=== PATIENT | female | born 1945 | race Two or more races ===

== ENCOUNTER 2023-05-14 12:49 | Emergency (ER) | payer OTHER, MEDICAID ==
[~2023-05-14] VITALS: Ht 154.9 cm; Wt 57.8 kg
[~2023-05-14 12:49] MED LIST: ATEN50TA PO; BENAPOW2 XX; DICL75TA2 PO; GABA100C PO; METF-370 PO; PRAV20TA3 GT; TRIA75TA55 PO; VENL1TAB96 PO
[2023-05-14 12:50] VITALS: TEMP 98.2
[2023-05-14 12:55] VITALS: BP 107/53; PULSE 87; RESP 18; O2SAT 96
[2023-05-14 13:20] LABS: Basophils # (auto) 0 10 ^3/uL (0-0.2); Basophils % (auto) 0.3 % (0.0-2.0); Eosinophils # (auto) 0.1 10 ^3/uL (0-0.8); Eosinophils % (auto) 1.2 % (0.0-7.0); Hematocrit 36.3 % (36.0-46.0); Hemoglobin 11.8 g/dL (12.2-16.2); Lymphocytes % (auto) 16.8 % (10.0-50.0); Mean Corpuscular Hemoglobin 29.4 pg (28.0-32.0); Mean Corpuscular Hgb Conc. 32.6 g/dL (32.0-36.0); Monocytes # (auto) 0.8 10 ^3/uL (0-1.3); Monocytes % (auto) 6.6 % (0.0-12.0); Neutrophils # (auto) 8.9 10 ^3/uL (1.6-8.6); Neutrophils % (auto) 75.1 % (37.0-80.0); Red Blood Cells 4.03 10^6/uL (4.0-5.20); Red Cell Distribution Width 12.7 % (11.8-14.3); White Blood Cell 11.9 10^3/uL (4.4-10.8)
[2023-05-14] MEDS: methylPREDNISolone SOD SUCC 125 MG/2 ML VL IM ONE (13:23)
[2023-05-14 13:32] LABS: Chloride 97 mmol/L (98-107); Potassium 3.6 mmol/L (3.5-5.1); Sodium 132 mmol/L (136-145)
[2023-05-14 13:33] LABS: Anion Gap 10 (5-15); Calcium 9.4 mg/dL (8.7-10.4); Carbon Dioxide 25 mmol/L (20-30)
[2023-05-14 13:38] LABS: Blood Urea Nitrogen 22 mg/dL (9-23); Glucose 98 mg/dL (74-106)
[2023-05-14] MEDS ORDERED: LEVO500T91 PO (14:03)
[2023-05-14] MEDS ORDERED: PRED10TA PO (14:03)
== END 2023-05-14 14:04 | disposition home or self-care (01) ==
LOC: ER 12:49
DX: J40 Bronchitis, not specified as acute or chronic (principal); E11.9 Type 2 diabetes mellitus without complications; I10 Essential (primary) hypertension; R07.89 Other chest pain
CPT/HCPCS: 36415; 71045; 80048; 85025; 96372; 99284; J2930

== ENCOUNTER 2023-10-27 11:18 | Emergency (ER) | payer OTHER, MEDICAID ==
[~2023-10-27] VITALS: Ht 154.9 cm; Wt 56.6 kg
[~2023-10-27 11:18] MED LIST changes: +LEVO500T91 PO; +PRED10TA PO
[2023-10-27 12:23] LABS: Basophils # (auto) 0.1 10 ^3/uL (0-0.2); Basophils % (auto) 0.6 % (0.0-2.0); Eosinophils # (auto) 0.2 10 ^3/uL (0-0.8); Eosinophils % (auto) 2.1 % (0.0-7.0); Hematocrit 39.6 % (36.0-46.0); Hemoglobin 13.1 g/dL (12.2-16.2); Lymphocytes # (auto) 2.4 10 ^3/uL (0.4-5.4); Lymphocytes % (auto) 28.8 % (10.0-50.0); Mean Corpuscular Hemoglobin 29.8 pg (28.0-32.0); Mean Corpuscular Hgb Conc. 33.1 g/dL (32.0-36.0); Mean Corpuscular Volume 89.9 fL (80.0-100.0); Monocytes # (auto) 0.6 10 ^3/uL (0-1.3); Monocytes % (auto) 7.1 % (0.0-12.0); Neutrophils # (auto) 5.2 10 ^3/uL (1.6-8.6); Neutrophils % (auto) 61.4 % (37.0-80.0); Red Cell Distribution Width 13.5 % (11.8-14.3); White Blood Cell 8.4 10^3/uL (4.4-10.8)
[2023-10-27 12:26] VITALS: TEMP 98.1
[2023-10-27 12:29] VITALS: PULSE 62; RESP 16; O2SAT 97
[2023-10-27 12:41] LABS: Chloride 106 mmol/L (98-107); Potassium 3.9 mmol/L (3.5-5.1); Sodium 140 mmol/L (136-145)
[2023-10-27 12:42] LABS: Anion Gap 8 (5-15); Calcium 9.9 mg/dL (8.7-10.4); Carbon Dioxide 26 mmol/L (20-30)
[2023-10-27 12:47] LABS: BUN/Creatinine Ratio 17.5 (10.0-20.0); Blood Alcohol < 3.0 mg/dL (<10); Blood Urea Nitrogen 17 mg/dL (9-23); Glucose 104 mg/dL (74-106)
[2023-10-27 14:03] VITALS: BP 156/77; PULSE 54; RESP 15; O2SAT 99
== END 2023-10-27 14:33 | disposition left against medical advice (07) ==
LOC: ER 11:26
DX: S00.83XA Contusion of other part of head, initial encounter (principal); S60.221A Contusion of right hand, initial encounter; G90.9 Disorder of the autonomic nervous system, unspecified; I10 Essential (primary) hypertension; E11.9 Type 2 diabetes mellitus without complications; E78.5 Hyperlipidemia, unspecified; Z98.890 Other specified postprocedural states; Z88.0 Allergy status to penicillin; Z88.2 Allergy status to sulfonamides; Z79.899 Other long term (current) drug therapy; W18.39XA Other fall on same level, initial encounter; Y93.9 Activity, unspecified; Y92.512 Supermarket, store or market as the place of occurrence of the external cause; Y99.8 Other external cause status
CPT/HCPCS: 36415; 70450; 73130; 80048; 80320; 82962; 84484; 85025; 93005

== ENCOUNTER 2023-10-30 10:05 | Emergency (ER) | payer OTHER, MEDICAID ==
[~2023-10-30] VITALS: Ht 154.9 cm; Wt 55.3 kg
[2023-10-30 11:27] VITALS: BP 97/58; PULSE 70; RESP 18; TEMP 97.1; O2SAT 96
== END 2023-10-30 12:42 | disposition left against medical advice (07) ==
LOC: ER 10:05
DX: S09.8XXD Other specified injuries of head, subsequent encounter (principal); M25.531 Pain in right wrist; W18.39XD Other fall on same level, subsequent encounter
CPT/HCPCS: 29125